=== PATIENT | female | born 2000 | race Caucasian/White ===

== ENCOUNTER 2022-06-09 21:42 | Emergency (ER) | payer OTHER, SELFPAY ==
[2022-06-09 21:45] VITALS: BP 135/84; PULSE 98; RESP 20; TEMP 37; O2SAT 100; BMI 22.4
[2022-06-09 22:10] LABS: Add Manual Diff / Slide Review NO; Basophils Absolute Auto 0 /uL (0-100); Basophils Percent Auto 0.3 % (0-2); Eosinophils Absolute Auto 1200 /uL (0-450); Eosinophils Percent Auto 10.7 % (2-4); Hematocrit 39.3 % (36-46); Hemoglobin 13.3 g/dL (12.0-16.0); Lymphocytes Absolute Auto 4400 /uL (1100-4500); Lymphocytes Percent Auto 40.2 % (25-40); Mean Corpuscular HGB Conc 33.9 % (30-36); Mean Corpuscular Hemoglobin 28.9 PG (26-34); Mean Corpuscular Volume 85.4 fL (80-100); Monocytes Absolute Auto 900 /uL (0-900); Monocytes Percent Auto 8.5 % (3-14); Neutrophils Absolute Auto 4400 /uL (1500-7000); Neutrophils Percent Auto 40.3 % (50-75); Platelet Count 410 X10^3/uL (150-400); Red Blood Cell Count 4.61 X10^6/uL (4.0-5.2); Red Cell Distribution Width 12.8 % (11.6-14.8)
[2022-06-09 22:20] LABS: Alanine Aminotransferase 29 IU/L (<35); Albumin 4.5 g/dL (3.5-5.0); Albumin Globulin Ratio 1.3 (1.0-2.8); Alkaline Phosphatase 67 U/L (38-126); Aspartate Aminotransferase 31 IU/L (14-36); BUN Creatinine Ratio 17.4 (6-22); Bilirubin Total 0.2 mg/dL (0.2-1.3); Blood Urea Nitrogen 16 mg/dL (7-17); Calcium 9.2 mg/dL (8.4-10.2); Carbon Dioxide 27 mmol/L (22-32); Chloride 104 mmol/L (98-107); Estimated Glomerular Filt Rate > 60 mL/min (>60); Globulin 3.5 g/dL (1.7-4.1); Glucose 101 mg/dL (70-100); HEMOLYSIS < 15 (0-50); Lipase 68 U/L (23-300); Potassium 3.9 mmol/L (3.4-5.1); Sodium 141 mmol/L (137-145)
--- NOTE | 2022-06-09 23:35 | ED_ITS ---
HPI - Abdominal Pain General Chief Complaint: Abdominal Pain Stated Complaint: rt. side abd. pain Time Seen by Provider: 06/09/22 23:17 Source: patient Mode of arrival: Ambulatory Limitations: no limitations History of Present Illness HPI narrative: This is a 20 old female with a week of abdominal pain which he states started around her umbilicus sometimes radiates to the right lower quadrant also occasional right flank pain. Patient states no fevers or chills. Some mild nausea. No vomiting. No diarrhea, no constipation, no black or bloody stools. No dysuria, urgency or frequency. No vaginal bleeding or discharge that is new. She does note that her menses prior was longer than typical. She is no longer on her menstrual cycle. Patient states pain has been persisting and getting a little bit worse. She denies any daily medications, no medical issues. No prior surgeries. No tobacco, occasional alcohol, no illicit. She is allergic to amoxicillin and penicillin does not know what that allergy is. Related Data Previous Rx's Medication Instructions Recorded benzonatate 100 mg capsule 100 mg PO BID PRN cough #20 caps 12/25/21 meloxicam 7.5 mg tablet 7.5 mg PO BID PRN pain #10 tabs 06/10/22 Allergies Allergy/AdvReac Type Severity Reaction Status Date / Time amoxicillin AdvReac Verified 06/09/22 21:52 Penicillins AdvReac Verified 06/09/22 21:52 Review of Systems Review of Systems ROS Unobtainable: All systems reviewed & are unremarkable except as noted in HPI and below Patient History Social History Smoking Status: Never smoker Smoking Status: Never smoker alcohol intake frequency: holidays/special occasions only Substance Use Type: does not use Exam Narrative Exam Narrative: GENERAL: Alert and oriented x three, female in mild distress HEENT: Head normocephalic, atraumatic, EOMI, pupils reactive, face symmetric, moist mucous membranes NECK: Supple, full range of motion CARDIOVASCULAR: Regular rate and rhythm without murmurs, rubs or gallops. RESPIRATORY: Breath sounds equal bilaterally, no wheezes rales or rhonchi. ABDOMEN: Soft, patient is tender more in the left lower quadrant and suprapubically. I am able to palpate quite deeply in the right lower quadrant without any pain. Normoactive bowel sounds all 4 quadrants. No guarding or rebound, rigidity, no mass : No CVA tenderness EXTREMITIES: Normal range of motion, no clubbing or edema. Neurovascularly intact NEUROLOGICAL: Cranial nerves II through XII grossly intact. Moving all extremities SKIN: Warm, dry, no petechiae, no rashes or lesions. Initial Vital Signs Initial Vital Signs: Vital Signs Temperature 98.6 F 06/09/22 21:45 Pulse Rate 98 H 06/09/22 21:45 Respiratory Rate 20 06/09/22 21:45 Blood Pressure 135/84 06/09/22 21:45 Pulse Oximetry 100 06/09/22 21:45 Oxygen Delivery Method 06/09/22 21:45 Course Orders Ordered: ED Orders 06/09/22 22:00 Complete Blood Count AUTO DIFF Stat Comprehensive Metabolic Panel Stat Lipase Stat 06/10/22 00:13 CT abdomen pelvis w con Stat Discontinued Medications Ketorolac Tromethamine (Ketorolac 30 Mg/Ml Vial) 15 mg IV NOW ONE Stop: 06/09/22 23:36 Last Admin: 06/10/22 00:08 Dose: 15 mg Documented By: SB Vital Signs Vital signs: Vital Signs - 8 hr 06/09/22 21:45 06/10/22 01:35 Temperature 98.6 F Pulse Rate 98 H Respiratory Rate 20 Blood Pressure 135/84 130/78 Pulse Oximetry 100 Oxygen Delivery Method Room Air MDM - Abdominal Pain Lab Data Result diagrams: 06/09/22 22:00 06/09/22 22:00 Labs: Lab Results 06/09/22 06/09/22 Range/Units 22:00 22:00 WBC 11.0 (4.5-11.0) X10^3/uL RBC 4.61 (4.0-5.2) X10^6/uL Hgb 13.3 (12.0-16.0) g/dL Hct 39.3 (36-46) % MCV 85.4 (80-100) fL MCH 28.9 (26-34) PG MCHC 33.9 (30-36) % RDW 12.8 (11.6-14.8) % Plt Count 410 H (150-400) X10^3/uL Neut % (Auto) 40.3 L (50-75) % Lymph % (Auto) 40.2 H (25-40) % [place] % (Auto) 8.5 (3-14) % Eos % (Auto) 10.7 H (2-4) % Baso % (Auto) 0.3 (0-2) % Neut # (Auto) 4400 (1505-1611) /uL Lymph # (Auto) 4400 (0094-6003) /uL [place] # (Auto) 900 (0-900) /uL Eos # (Auto) 1200 H (0-450) /uL Baso # (Auto) 0 (0-100) /uL Sodium 141 (137-145) mmol/L Potassium 3.9 (3.4-5.1) mmol/L Chloride 104 (98-107) mmol/L Carbon Dioxide 27 (22-32) mmol/L BUN 16 (7-17) mg/dL Creatinine 0.92 (0.52-1.04) mg/dL Estimated GFR > 60 (>60) mL/min BUN/Creatinine Ratio 17.4 (6-22) Glucose 101 H (70-100) mg/dL Calcium 9.2 (8.4-10.2) mg/dL Total Bilirubin 0.2 (0.2-1.3) mg/dL AST 31 (14-36) IU/L ALT 29 (<35) IU/L Alkaline Phosphatase 67 (38-126) U/L Total Protein 8.0 (6.3-8.2) g/dL Albumin 4.5 (3.5-5.0) g/dL Globulin 3.5 (1.7-4.1) g/dL Albumin/Globulin Ratio 1.3 (1.0-2.8) Lipase 68 (23-300) U/L Point of care testing: Point of Care Testing Test Results Negative Urine Dip Bedside Urine Glucose Negative Bedside Urine Bilirubin - Negative Bedside Urine Ketone - Negative Urine Specific [place] 1.015 Bedside Urine Occult Blood - Negative Bedside Urine pH 6.5 Bedside Urine Protein - Negative Bedside Urine Urobilinogen - Negative Bedside Urine Nitrite - Negative Bedside Urine Leukocytes - Negative Esterase Imaging Data CT scan - abdomen/pelvis: Radiologist's Impression: [address] [address] [address] Scan Report Signed Patient: Elyssa Mitchell MR#: [id number] : 2000 Acct:[id number] Age/Sex: 22 / F Date of Service: 06/10/22 Loc: ED Accession Number: [id number] ?? Procedure: CT abdomen pelvis w con Ordering Provider: Nuria Hopper D.O. PROCEDURE:? CT ABDOMEN PELVIS W CON ? INDICATIONS:? abd pain, right and left lower x 1 week ? TECHNIQUE:? After the administration of IV contrast, axial sections were acquired from the lung bases to the pubic symphysis.? Coronal and sagittal reformats were performed.? For radiation dose reduction, the following was used:? automated exposure control, adjustment of mA and/or kV according to patient size. ? COMPARISON:? None. ? FINDINGS:? Image quality:? Excellent.? ? Lung bases:? Unremarkable.? ? Heart:? Heart is normal in size. ? ? ABDOMEN: Liver:? No mass lesion. Gallbladder:? Within normal limits without calcified gallstones.? ? Biliary ducts:? No biliary ductal dilatation.? ? Pancreas:? Unremarkable.? ? Spleen:? Normal in size.? ? Adrenal Glands:? No adrenal nodules.? ? Kidneys and Ureters:? No hydronephrosis.? ? ? Stomach and Bowel:? Stomach, small bowel loops, and colon are normal in caliber and wall thickness.? The appendix is normal in appearance.? There is moderate stool distention throughout the abdomen suggestive of constipation.? No definite bowel obst ruction. Peritoneum:? There is a small amount of free fluid in the pelvis which appears within physiologic limits.? No free air.? ? Ventral Wall: ? No hernia.? Abdominal Nodes:? No retroperitoneal or mesenteric adenopathy by size criteria.? Vessels:? Aorta and inferior vena cava are normal in size.? ? PELVIS: Pelvic Organs:? Unremarkable.? ? Bladder:? Unremarkable.? ? Pelvic Nodes: No enlarged lymph nodes.? Miscellaneous: No inguinal hernias are seen. ? ? ? Bones:? Visualized osseous structures demonstrate no suspicious focal lesions. ? IMPRESSION:? ? 1. No definite acute intra-abdominal abnormality.? Specifically, no evidence of appendicitis. ? 2. Small amount of free fluid in the pelvis appears within physiologic limits.? ? ? Dictated by: Dariel Gonzalez M.D. on 06/10/2022 at 1:19 ? ? Approved by: Dariel Gonzalez M.D. on 06/10/2022 at 1:23?? MDM Narrative Medical decision making narrative: This is a 22-year-old female with lower abdominal pain that has been present for about a week slowly worsening. No urinary urinary symptoms but patient does have some suprapubic tenderness she is had some right flank discomfort. Labs are overall reassuring, urine shows no acute change. CT shows minimal free physiologic fluid with no other acute change. Reviewed with patient she defers pelvic exam we did discuss we have not ruled this out. Patient states she has a gynecology appointment upcoming. Discharge Plan Departure Patient Disposition: Home Clinical Impression: Abdominal pain Instructions: DI for Abdominal Pain-Adult Activity Restrictions/Additional Instructions: Follow-up at your gynecologic appointment for recheck, we did not perform a pelvic exam today so we have not completely ruled out cervical or pelvic infections. You may take meloxicam 1 tablet every 12 hours as needed. You can also take Tylenol up to a 1000 mg every 6 hours with this medication. [facility] [place] Please return for fevers, new or worsening abdominal, back or flank pain, persistent vomiting, lightheadedness or passing out, black or bloody stools or other new or concerning changes. Prescriptions: New meloxicam 7.5 mg tablet 7.5 mg PO BID PRN (Reason: pain) Qty: 10 0RF No Action benzonatate 100 mg capsule 100 mg PO BID PRN (Reason: cough) Qty: 20 0RF Referrals: Miscellaneous,Doctor, [Primary Care Provider] - Visit Report Forms: Patient Portal/API
[2022-06-10] MEDS: KETOROLAC 30 MG/ML VIAL 15 MG IV (00:08)
--- NOTE | 2022-06-10 00:13 | DI.CT.S_ITS ---
PROCEDURE: CT ABDOMEN PELVIS W CON INDICATIONS: abd pain, right and left lower x 1 week TECHNIQUE: After the administration of IV contrast, axial sections were acquired from the lung bases to the pubic symphysis. Coronal and sagittal reformats were performed. For radiation dose reduction, the following was used: automated exposure control, adjustment of mA and/or kV according to patient size. COMPARISON: None. FINDINGS: Image quality: Excellent. Lung bases: Unremarkable. Heart: Heart is normal in size. ABDOMEN: Liver: No mass lesion. Gallbladder: Within normal limits without calcified gallstones. Biliary ducts: No biliary ductal dilatation. Pancreas: Unremarkable. Spleen: Normal in size. Adrenal Glands: No adrenal nodules. Kidneys and Ureters: No hydronephrosis. Stomach and Bowel: Stomach, small bowel loops, and colon are normal in caliber and wall thickness. The appendix is normal in appearance. There is moderate stool distention throughout the abdomen suggestive of constipation. No definite bowel obstruction. Peritoneum: There is a small amount of free fluid in the pelvis which appears within physiologic limits. No free air. Ventral Wall: No hernia. Abdominal Nodes: No retroperitoneal or mesenteric adenopathy by size criteria. Vessels: Aorta and inferior vena cava are normal in size. PELVIS: Pelvic Organs: Unremarkable. Bladder: Unremarkable. Pelvic Nodes: No enlarged lymph nodes. Miscellaneous: No inguinal hernias are seen. Bones: Visualized osseous structures demonstrate no suspicious focal lesions. IMPRESSION: 1. No definite acute intra-abdominal abnormality. Specifically, no evidence of appendicitis. 2. Small amount of free fluid in the pelvis appears within physiologic limits. Dictated by: Dariel Gonzalez M.D. on 06/10/2022 at 1:19 Approved by: Dariel Gonzalez M.D. on 06/10/2022 at 1:23
[2022-06-10 01:35] VITALS: BP 130/78
== END 2022-06-10 01:40 | disposition home or self-care (01) ==
PROVIDERS: Emergency Provider Emergency Medicine
DX: R10.31 Right lower quadrant pain (principal)
CPT/HCPCS: 36415; 74177; 80053; 81003; 81025; 83690; 85025; 96374; 99284; J1885; Q9967

== ENCOUNTER → 2022-11-08 13:53 | Outpatient (CLI) | payer OTHER, SELFPAY | PROVIDERS: Visit Provider Physician Assistant | DX: J02.9 Acute pharyngitis, unspecified (principal) | CPT/HCPCS: 87070 ==

== ENCOUNTER → 2023-06-06 12:55 | Outpatient (CLI) | payer OTHER, SELFPAY ==
--- NOTE | 2023-06-06 12:57 | DI.RAD.S_ITS ---
PROCEDURE: XR LUMBAR SPINE 2-3V INDICATIONS: midline pain/tenderness/swelling; hx pars defect TECHNIQUE: 3 views of the lumbar spine were acquired. COMPARISON: None. FINDINGS: Bones: 5 [id number] vertebrae are present. Levo scoliotic curvature of the lumbar spine. Grade 1 anterolisthesis of L5 on S1 with possible pars interarticularis defects. No vertebral body compression fractures. No suspicious bony lesions. Soft tissues: Overlying bowel gas pattern is normal. No suspicious soft tissue calcifications. IMPRESSION: Levo scoliotic curvature of the lumbar spine. No significant degenerative changes. Grade 1 anterolisthesis of L5 on S1 with possible pars interarticularis defects. Dictated by: Timi Walters M.D. on 06/06/2023 at 13:43 Approved by: Timi Walters M.D. on 06/06/2023 at 13:44
--- NOTE | 2023-06-06 12:57 | DI.RAD.S_ITS ---
PROCEDURE: XR THORACIC SPINE 3V INDICATIONS: midline pain/tenderness/swelling; hx pars defect TECHNIQUE: 3 views of the thoracic spine were acquired. COMPARISON: None. FINDINGS: Bones: No fractures or dislocations. No suspicious bony lesions. Mild dextrocurvature of the midthoracic spine and levocurvature of the lower thoracic and lumbar spine. Thirteen pairs of ribs are noted, and appear intact where visualized. Soft tissues: No paravertebral stripe thickening. IMPRESSION: 1. Mild S shaped curvature of the thoracolumbar spine. No significant degenerative changes. 2. There appears to be 13 ribs. Dictated by: Timi Walters M.D. on 06/06/2023 at 13:44 Approved by: Timi Walters M.D. on 06/06/2023 at 13:47
== END ==
PROVIDERS: Referring Provider Student in an Organized Health Care Education/Training Program; Visit Provider Student in an Organized Health Care Education/Training Program
DX: S39.012A Strain of muscle, fascia and tendon of lower back, initial encounter (principal); S29.012A Strain of muscle and tendon of back wall of thorax, initial encounter; Y99.0 Civilian activity done for income or pay; M43.17 Spondylolisthesis, lumbosacral region
CPT/HCPCS: 72070; 72100

== ENCOUNTER → 2024-11-11 10:26 | Outpatient (ROUT) | payer OTHER, SELFPAY ==
[2024-11-11 10:52] LABS: Prothrombin Time 10.8 SECONDS (9.4-12.5)
[2024-11-11 10:55] LABS: PTT Partial Thromboplastin Tim 34 SECONDS (25.1-36.5)
== END ==
PROVIDERS: Visit Provider Registered Nurse
DX: R23.3 Spontaneous ecchymoses (principal); R61 Generalized hyperhidrosis; H35.09 Other intraretinal microvascular abnormalities
CPT/HCPCS: 85610; 85730

== ENCOUNTER → 2025-03-12 15:27 | Outpatient (CLI) | payer OTHER, SELFPAY ==
--- NOTE | 2025-03-12 | DI.RAD.S_ITS ---
PROCEDURE: XR HIP W PEL IF DONE RT 2V INDICATIONS: Acute hip pain, right TECHNIQUE: Two views of the right COMPARISON: None. FINDINGS: Bones: There are no osseous abnormalities. SI and hip joints: Normal in width and alignment without arthritic change Soft tissues: No soft tissue swelling, calcification or mass. IMPRESSION: Normal pelvis Dictated by: Elder Pulido M.D. on 03/13/2025 at 11:25 Approved by: Elder Pulido M.D. on 03/13/2025 at 11:25
== END ==
PROVIDERS: PCP Registered Nurse; Referring Provider Registered Nurse; Visit Provider Registered Nurse
DX: M25.551 Pain in right hip (principal); M67.951 Unspecified disorder of synovium and tendon, right thigh
CPT/HCPCS: 73502